=== PATIENT | female | born 1980 | race Caucasian/White ===

== ENCOUNTER 2017-02-27 13:03 | Emergency (ER) | payer OTHER ==
--- NOTE | 2017-02-27 13:41 | ERPHSYRPT ---
- History of Present Illness Time Seen by Provider: 02/27/17 13:39 Source: patient Exam Limitations: no limitations Physician History: tender sts of dorsal left foot today, tripped on the steps, no bleeding, no other injury, mild to mod ache pain, but pt refused pain med Allergies/Adverse Reactions: No Known Drug Allergies Allergy (Verified 02/27/17 13:36) Home Medications: Loratadine 10 mg [Claritin 10 mg] 10 mg PO DAILY 04/22/15 [History] Paroxetine HCl [Paxil Cr] 25 mg PO DAILY 04/22/15 [History] Propranolol HCl [Inderal LA] 80 mg PO DAILY 02/27/17 [History] Hx Tetanus, Diphtheria Vaccination/Date Given: No Hx Influenza Vaccination/Date Given: Yes Hx Pneumococcal Vaccination/Date Given: No - Review of Systems Neurological: No Dizziness - Past Medical History Pertinent Past Medical History: Yes Neurological History: No Pertinent History Cardiac History: No Pertinent History Respiratory History: No Pertinent History Endocrine Medical History: No Pertinent History Musculoskeletal History: Other Female Reproductive Disorders: Menstrual Problems Other Medical History: CHONDROMALACIA BILATERAL KNEES - Past Surgical History Past Surgical History: Yes Female Surgical History: Section, Tubal Ligation, Other Other Surgical History: ablasion - Social History Smoking Status: Never smoker Exposure to second hand smoke: No Drug Use: none Patient Lives Alone: No - Nursing Vital Signs Nursing Vital Signs: Initial Vital Signs Temperature 97.7 F 02/27/17 13:33 Pulse Rate 77 02/27/17 13:33 Respiratory Rate 18 02/27/17 13:33 Blood Pressure 128/66 02/27/17 13:33 O2 Sat by Pulse Oximetry 95 02/27/17 13:33 Pain Scale Pain Intensity 7 - Physical Exam General Appearance: no apparent distress Neuro/Tendon Exam: normal sensation Mental Status Exam: alert, oriented x 3, cooperative Skin Exam: warm, dry, other (tender sts left dorsal mid foot, rom limited by pain, sen and pulses intact, nontender knee) - Course Nursing assessment & vital signs reviewed: Yes - Radiology Exams Foot X-ray Interpretation: Interpreted by me, No Fracture Ankle X-ray Interpretation: Interpreted by me, No Fracture Ordered Tests: Active Orders 24 hr Category Date Time Status Crutches STAT Care 02/27/17 14:21 Ordered Splint STAT Care 02/27/17 14:20 Ordered ANKLE (3 VIEWS) Stat Exams 02/27/17 Taken FOOT (MINIMUM 3 VIEWS) Stat Exams 02/27/17 Taken Medication Summary Discontinued Medications Generic Name Dose Route Start Last Admin Trade Name Teddy PRN Reason Stop Dose Admin Ibuprofen 400 mg 02/27/17 13:56 02/27/17 13:59 Motrin 400 Mg PO 02/27/17 13:57 400 mg STAT ONE Administration Ibuprofen Confirm 02/27/17 13:58 Motrin 400 Mg Administered 02/27/17 13:59 Dose 400 mg .ROUTE .STK-MED ONE - Progress Progress: improved Progress Note: 02/27/17 14:22 motrin ice and elevation crutches Discussed with .: Merlin Will see patient in: office Counseled pt/family regarding: diagnosis, need for follow-up, rad results - Departure Time of Disposition: 14:23 Departure Disposition: Home Clinical Impression: Contusion Qualifiers: Encounter type: initial encounter Contusion area: foot Laterality: left Qualified Code(s): S90.32XA - Contusion of left foot, initial encounter Condition: Stable Critical Care Time: No Referrals: RYAN MCCORMICK [Primary Care Provider] - Instructions: Foot Pain Additional Instructions: see [facility] [phone] ice and elevation and motrin use crutches, nonweight bearing return if worse
[2017-02-27] MEDS ORDERED: MOTRIN 400 MG PO ONE (13:56)
[2017-02-27] MEDS ORDERED: MOTRIN 400 MG ONE (13:58)
[2017-02-27 15:04] VITALS: BP 132/70; PULSE 68; O2SAT 97
--- NOTE | 2017-02-27 19:46 | XRAY ---
Indication: Pain following twisting injury. Comparison: None 3 nonweightbearing views of the left foot demonstrates tiny heel spurs and prominent navicular accessory ossicle. No other bony, articular, or soft tissue abnormalities.
--- NOTE | 2017-02-27 19:46 | XRAY ---
Indication: Pain following twisting injury. Comparison: None 3 views of the left ankle demonstrates tiny heel spurs. No other bony, articular, or soft tissue abnormalities.
== END 2017-02-27 15:04 | disposition home or self-care (01) ==
LOC: ED 13:03
PROC: 2W3RX1Z Immobilization of Left Lower Leg using Splint (ICD-10-PCS; principal; 2017-02-27)
DX: S90.32XA Contusion of left foot, initial encounter (principal); W10.9XXA Fall (on) (from) unspecified stairs and steps, initial encounter
CPT/HCPCS: 29515; 73610; 73630; 99283; A9270-GY

== ENCOUNTER 2018-03-20 17:25 | Emergency (ER) | payer OTHER ==
--- NOTE | 2018-03-20 17:48 | ERPHSYRPT ---
- History of Present Illness Time Seen by Provider: 03/20/18 17:47 Historian: patient, family Exam Limitations: no limitations Physician History: 38 y/o white female presents with abd cramping pain, vomiting and diarrhea onset approx 1 to 2 hours after a brunch meal today. pain in epigastric area without radiation. denies cp and denies soa. had a similar episode in 2010 and dx with gastritis. pt still with gallbladder in place. no other individuals with same sx after eating same food. Timing/Duration: today Activities at Onset: other (just ate) Quality: cramping Abdominal Pain Onset Location: epigastric, periumbilical Pain Radiation: no radiation Severity of Pain-Max: mild Severity of Pain-Current: mild Modifying Factors: Improves With: vomiting Associated Symptoms: diarrhea, loss of appetite, nausea, vomiting Previous symptoms: same symptoms as today (in 2009) Allergies/Adverse Reactions: No Known Drug Allergies Allergy (Verified 02/27/17 13:36) Home Medications: Paroxetine HCl [Paxil Cr] 25 mg PO DAILY 04/22/15 [History] Amphet Asp/Amphet/D-Amphet [Adderall 30 mg Tablet] 30 mg PO DAILY 03/17/18 [ History] Propranolol HCl [Propranolol HCl ER] 120 mg PO DAILY 03/17/18 [History] Hx Tetanus, Diphtheria Vaccination/Date Given: No Hx Influenza Vaccination/Date Given: Yes Hx Pneumococcal Vaccination/Date Given: No - Review of Systems Constitutional: No Symptoms Eyes: No Symptoms Ears, Nose, & Throat: No Symptoms Respiratory: No Symptoms Cardiac: No Symptoms Abdominal/Gastrointestinal: Abdominal Pain, Nausea, Vomiting, Diarrhea Genitourinary Symptoms: No Symptoms, No Dysuria, No Frequency, No Hematuria Musculoskeletal: No Symptoms Skin: No Symptoms Neurological: No Symptoms Psychological: No Symptoms Endocrine: No Symptoms Hematologic/Lymphatic: No Symptoms Immunological/Allergic: No Symptoms All Other Systems: Reviewed and Negative - Past Medical History Pertinent Past Medical History: Yes Neurological History: No Pertinent History Cardiac History: No Pertinent History Respiratory History: No Pertinent History Endocrine Medical History: No Pertinent History Musculoskeletal History: Other GI Medical History: No Pertinent History History: No Pertinent History Psycho-Social History: No Pertinent History Female Reproductive Disorders: Menstrual Problems Other Medical History: CHONDROMALACIA BILATERAL KNEES - Past Surgical History Past Surgical History: Yes Neuro Surgical History: No Pertinent History Cardiac: No Pertinent History Respiratory: No Pertinent History Gastrointestinal: No Pertinent History Genitourinary: No Pertinent History Musculoskeletal: No Pertinent History Female Surgical History: Section, Tubal Ligation, Other Other Surgical History: ablasion - Social History Smoking Status: Never smoker Exposure to second hand smoke: No Drug Use: none Patient Lives Alone: No - Nursing Vital Signs Nursing Vital Signs: Initial Vital Signs Temperature 98.5 F 03/20/18 17:57 Pulse Rate 57 L 03/20/18 17:57 Respiratory Rate 16 03/20/18 17:57 Blood Pressure 123/80 03/20/18 17:57 O2 Sat by Pulse Oximetry 96 03/20/18 17:57 Pain Scale Pain Intensity 6 - Physical Exam General Appearance: mild distress, alert, anxiety Eye Exam: PERRL/EOMI, eyes nml inspection Ears, Nose, Throat Exam: normal ENT inspection, moist mucous membranes Neck Exam: normal inspection, non-tender, supple, full range of motion Respiratory Exam: normal breath sounds, lungs clear, airway intact, No chest tenderness, No respiratory distress, No accessory muscle use, No rhonchi, No wheezing, No stridor Cardiovascular Exam: regular rate/rhythm, normal heart sounds, normal peripheral pulses Gastrointestinal/Abdomen Exam: soft, normal bowel sounds, tenderness (mild epigastric and periumbilical cramping), No guarding, No rebound Back Exam: normal inspection, normal range of motion, No CVA tenderness, No vertebral tenderness Extremity Exam: normal inspection, normal range of motion, pelvis stable Neurologic Exam: alert, oriented x 3, cooperative, traveling passenger agent II-XII nml as tested Skin Exam: normal color, warm, dry Lymphatic Exam: No adenopathy SpO2 Interpretation: normal Oxygen Delivery: Room Air - Course Nursing assessment & vital signs reviewed: Yes Ordered Tests: Active Orders 24 hr Category Date Time Status IV Insertion STAT Care 03/20/18 18:07 Active NPO (ED) STAT Care 03/20/18 18:07 Active ABDOMEN AND PELVIS W/0 CONTRAS [CT] Stat Exams 03/20/18 19:12 Taken AMYLASE Stat Lab 03/20/18 18:10 Completed CBC W DIFF Stat Lab 03/20/18 18:10 Completed CMP Stat Lab 03/20/18 18:10 Completed HCG,QUALITATIVE URINE Stat Lab 03/20/18 17:40 Completed LIPASE Stat Lab 03/20/18 18:10 Completed Lactic Acid Stat Lab 03/20/18 18:15 Completed UA W/RFX UR CULTURE Stat Lab 03/20/18 17:40 Completed Medication Summary Discontinued Medications Generic Name Dose Route Start Last Admin Trade Name Dennyq PRN Reason Stop Dose Admin Famotidine 20 mg 03/20/18 18:07 03/20/18 18:29 Pepcid 20 Mg Vial IV 03/20/18 18:08 20 mg STAT ONE Administration Famotidine Confirm 03/20/18 18:19 Pepcid 20 Mg Vial Administered 03/20/18 18:20 Dose 20 mg IV .STK-MED ONE Hydromorphone HCl 1 mg 03/20/18 19:12 03/20/18 19:30 Hydromorphone 1 Mg/Ml Ampule IV 03/20/18 19:13 1 mg STAT ONE Administration Hydromorphone HCl Confirm 03/20/18 19:27 Hydromorphone 1 Mg/Ml Ampule Administered 03/20/18 19:28 Dose 1 mg .ROUTE .STK-MED ONE Sodium Chloride 1,000 mls @ 999 mls/hr 03/20/18 18:07 03/20/18 18:30 Sodium Chloride 0.9% 1000 Ml IV 03/20/18 19:07 999 mls/hr .Q1H1M STA Administration Sodium Chloride Confirm 03/20/18 18:19 Sodium Chloride 0.9% 1000 Ml Administered 03/20/18 18:20 Dose 1,000 mls @ ud .ROUTE .STK-MED ONE Sodium Chloride 1,000 mls @ 999 mls/hr 03/20/18 19:12 03/20/18 19:29 Sodium Chloride 0.9% 1000 Ml IV 03/20/18 20:12 999 mls/hr .Q1H1M STA Administration Sodium Chloride Confirm 03/20/18 19:27 Sodium Chloride 0.9% 1000 Ml Administered 03/20/18 19:28 Dose 1,000 mls @ ud .ROUTE .STK-MED ONE Ondansetron HCl 4 mg 03/20/18 18:07 03/20/18 18:29 Zofran 4 Mg/2 Ml Vial IV 03/20/18 18:08 4 mg STAT ONE Administration Ondansetron HCl Confirm 03/20/18 18:19 Zofran 4 Mg/2 Ml Vial Administered 03/20/18 18:20 Dose 4 mg .ROUTE .STK-MED ONE Lab/Rad Data: Laboratory Result Diagrams 03/20/18 18:10 03/20/18 18:10 Laboratory Results 03/20/18 03/20/18 03/20/18 Range/Units 18:45 18:15 18:10 WBC (4.0-10.5) K/mm3 RBC (4.1-5.4) M/mm3 Hgb (12.0-16.0) gm/dl Hct (35-47) % MCV (78-100) fl MCH (26-32) pg MCHC (32-36) g/dl RDW (11.5-14.0) % Plt Count (150-450) K/mm3 MPV (6-9.5) fl Gran % (36.0-66.0) % Eos # (Auto) (0-0.5) Absolute Lymphs (auto) (1.0-4.6) Absolute Monos (auto) (0.0-1.3) Lymphocytes % (24.0-44.0) % Monocytes % (0.0-12.0) % Eosinophils % (0.00-5.0) % Basophils % (0.0-0.4) % Absolute Granulocytes (1.4-6.9) Basophils # (0-0.4) Sodium 144 (137-145) mmol/L Potassium 3.8 (3.5-5.1) mmol/L Chloride 104 (98-107) mmol/L Carbon Dioxide 31 H (22-30) mmol/L Anion Gap 12.8 (5-15) MEQ/L BUN 18 H (7-17) mg/dL Creatinine 0.94 (0.52-1.04) mg/dL Estimated GFR > 60.0 ML/MIN Glucose 97 (74-106) mg/dL Lactic Acid 0.7 (0.4-2.0) Calcium 9.7 (8.4-10.2) mg/dL Total Bilirubin 0.60 (0.2-1.3) mg/dL AST 30 (14-36) U/L ALT 22 (0-35) U/L Alkaline Phosphatase 91 (38-126) U/L Serum Total Protein 7.9 (6.3-8.2) g/dL Albumin 4.7 (3.5-5.0) g/dL Amylase 137 H (30-110) U/L Lipase 240 (23-300) U/L Urine Color (YELLOW) Urine Appearance (CLEAR) Urine pH (5-6) Ur Specific [place] (1.005-1.025) Urine Protein (Negative) Urine Ketones (NEGATIVE) Urine Blood (0-5) Yandel/ul Urine Nitrite (NEGATIVE) Urine Bilirubin (NEGATIVE) Urine Urobilinogen (0-1) mg/dL Ur Leukocyte Esterase (NEGATIVE) Urine WBC (Auto) (0-5) /HPF Urine RBC (Auto) (0-2) /HPF U Epithel Cells (Auto) (FEW) /HPF Urine Bacteria (Auto) (NEGATIVE) /HPF Urine Mucus (Auto) (NEGATIVE) /HPF Urine Culture Reflexed (NO) Urine Glucose (NEGATIVE) mg/dL Urine HCG, Qual (Negative) Influenza Type A Ag NEGATIVE (NEGATIVE) Influenza Type B Ag NEGATIVE (NEGATIVE) RSV (PCR) NEGATIVE (Negative) 03/20/18 03/20/18 03/20/18 Range/Units 18:10 17:40 17:40 WBC 8.0 (4.0-10.5) K/mm3 RBC 4.52 (4.1-5.4) M/mm3 Hgb 14.3 (12.0-16.0) gm/dl Hct 41.6 (35-47) % MCV 92.0 (78-100) fl MCH 31.6 (26-32) pg MCHC 34.4 (32-36) g/dl RDW 13.4 (11.5-14.0) % Plt Count 228 (150-450) K/mm3 MPV 10.0 H (6-9.5) fl Gran % 69.5 H (36.0-66.0) % Eos # (Auto) 0.14 (0-0.5) Absolute Lymphs (auto) 1.58 (1.0-4.6) Absolute Monos (auto) 0.68 (0.0-1.3) Lymphocytes % 19.8 L (24.0-44.0) % Monocytes % 8.5 (0.0-12.0) % Eosinophils % 1.8 (0.00-5.0) % Basophils % 0.4 (0.0-0.4) % Absolute Granulocytes 5.57 (1.4-6.9) Basophils # 0.03 (0-0.4) Sodium (137-145) mmol/L Potassium (3.5-5.1) mmol/L Chloride (98-107) mmol/L Carbon Dioxide (22-30) mmol/L Anion Gap (5-15) MEQ/L BUN (7-17) mg/dL Creatinine (0.52-1.04) mg/dL Estimated GFR ML/MIN Glucose (74-106) mg/dL Lactic Acid (0.4-2.0) Calcium (8.4-10.2) mg/dL Total Bilirubin (0.2-1.3) mg/dL AST (14-36) U/L ALT (0-35) U/L Alkaline Phosphatase (38-126) U/L Serum Total Protein (6.3-8.2) g/dL Albumin (3.5-5.0) g/dL Amylase (30-110) U/L Lipase (23-300) U/L Urine Color YELLOW (YELLOW) Urine Appearance CLEAR (CLEAR) Urine pH 5.0 (5-6) Ur Specific [place] 1.024 (1.005-1.025) Urine Protein NEGATIVE (Negative) Urine Ketones TRACE (NEGATIVE) Urine Blood NEGATIVE (0-5) Yandel/ul Urine Nitrite NEGATIVE (NEGATIVE) Urine Bilirubin NEGATIVE (NEGATIVE) Urine Urobilinogen 2 (0-1) mg/dL Ur Leukocyte Esterase NEGATIVE (NEGATIVE) Urine WBC (Auto) NONE (0-5) /HPF Urine RBC (Auto) NONE (0-2) /HPF U Epithel Cells (Auto) NONE (FEW) /HPF Urine Bacteria (Auto) NONE SEEN (NEGATIVE) /HPF Urine Mucus (Auto) SLIGHT (NEGATIVE) /HPF Urine Culture Reflexed NO (NO) Urine Glucose NEGATIVE (NEGATIVE) mg/dL Urine HCG, Qual NEGATIVE (Negative) Influenza Type A Ag (NEGATIVE) Influenza Type B Ag (NEGATIVE) RSV (PCR) (Negative) - Progress Progress: improved, re-examined Progress Note: 03/20/18 20:37 pt feeling much better. wants to try outpt tx. no nausea. pain nearly gone. Counseled pt/family regarding: lab results, diagnosis, need for follow-up, rad results - Departure Time of Disposition: 20:37 Departure Disposition: Home Clinical Impression: Colitis Condition: Stable Critical Care Time: No Referrals: RYAN MCCORMICK [Primary Care Provider] - Additional Instructions: drink plenty of clear liquids. follow up with primary doctor for further management. return to ED if symptoms recur. Prescriptions: Hydrocodone/APAP 5/325 [[place] 5/325 mg] 1 each PO Q8H PRN PRN #10 tablet MDD 3 PRN Reason: Pain Promethazine HCl 25 mg [Phenergan 25 mg] 25 mg PO Q8H PRN PRN #10 tablet PRN Reason: Nausea/Vomiting Ciprofloxacin [Cipro 500 MG] 500 mg PO BID #14 tablet Metronidazole 500 mg [Flagyl 500 MG] 500 mg PO TID #21 tablet
[2018-03-20] MEDS ORDERED: Pepcid 20 MG VIAL IV ONE ×2 (18:07→18:19)
[2018-03-20] MEDS ORDERED: Sodium Chloride 0.9% 1000 ML 1,000 ML IV STA ×2 (18:07→19:12)
[2018-03-20] MEDS ORDERED: Zofran 4 MG/2 ML VIAL IV ONE (18:07)
[2018-03-20] MEDS ORDERED: Sodium Chloride 0.9% 1000 ML 1,000 ML ONE ×2 (18:19→19:27)
[2018-03-20] MEDS ORDERED: Zofran 4 MG/2 ML VIAL ONE (18:19)
[2018-03-20 18:23] LABS: BASOPHIL % 0.4 % (0.0-0.4); Basophil (Absolute #) 0.03 (0-0.4); Eosinophil % 1.8 % (0.00-5.0); Eosinophil (Absolute #) 0.14 (0-0.5); Granulocyte Absolute (ANC) 5.57 (1.4-6.9); Granulocytes % 69.5 % (36.0-66.0); Hematocrit 41.6 % (35-47); Hemoglobin 14.3 gm/dl (12.0-16.0); Lymphocyte (Absolute #) 1.58 (1.0-4.6); Lymphocytes % 19.8 % (24.0-44.0); Mean Corpuscular Hemoglobin 31.6 pg (26-32); Mean Corpuscular Hgb Concent. 34.4 g/dl (32-36); Monocyte (Absolute #) 0.68 (0.0-1.3); Monocytes % 8.5 % (0.0-12.0); Platelet Count 228 K/mm3 (150-450); Red Blood Count 4.52 M/mm3 (4.1-5.4); Red Cell Distribution Width 13.4 % (11.5-14.0)
[2018-03-20 18:29] LABS: Appearance CLEAR (CLEAR); Bilirubin NEGATIVE (NEGATIVE); Blood NEGATIVE Ery/ul (0-5); Glucose NEGATIVE (NEGATIVE); Ketones TRACE (NEGATIVE); Leukocyte Esterase NEGATIVE (NEGATIVE); Nitrite NEGATIVE (NEGATIVE); Protein,Urine Dip NEGATIVE (Negative); Specific Gravity 1.024 (1.005-1.025); Urobilinogen 2 mg/dL (0-1)
[2018-03-20 18:41] LABS: ALBUMIN 4.7 g/dL (3.5-5.0); ALKALINE PHOSPHATASE 91 U/L (38-126); AMYLASE 137 U/L (30-110); ANION GAP 12.8 MEQ/L (5-15); BLOOD UREA NITROGEN 18 mg/dL (7-17); CHLORIDE 104 mmol/L (98-107); Calcium 9.7 mg/dL (8.4-10.2); Carbon Dioxide 31 mmol/L (22-30); Creatinine 1 0.94 mg/dL (0.52-1.04); Glucose 97 mg/dL (74-106); LIPASE 240 U/L (23-300); Potassium 3.8 mmol/L (3.5-5.1); SGOT/AST 30 U/L (14-36); SGPT/ALT 22 U/L (0-35); SODIUM 144 mmol/L (137-145); Total Protein 7.9 g/dL (6.3-8.2)
[2018-03-20] MEDS ORDERED: Hydromorphone 1 mg/ml Ampule IV ONE ×2 (19:12→20:46)
[2018-03-20] MEDS ORDERED: Hydromorphone 1 mg/ml Ampule ONE ×2 (19:27→20:53)
[2018-03-20 19:32] LABS: INFLUENZA A NEGATIVE (NEGATIVE); INFLUENZA B NEGATIVE (NEGATIVE); RESPIRATORY SYNCTIAL VIRUS NEGATIVE (Negative)
[2018-03-20 20:40] VITALS: PULSE 76
[2018-03-20] MEDS ORDERED: Flagyl 500 MG PO ONE (20:45)
[2018-03-20] MEDS ORDERED: Cipro 500 MG PO ONE (20:45)
[2018-03-20] MEDS ORDERED: Flagyl 500 MG ONE (20:53)
[2018-03-20] MEDS ORDERED: Cipro 500 MG ONE (20:53)
[2018-03-20 21:07] VITALS: BP 120/72; O2SAT 97
--- NOTE | 2018-03-20 22:29 | XRAY ---
Indication: Epigastric pain. Vomiting and diarrhea. Multiple contiguous axial images obtained through the abdomen and pelvis without contrast as ordered. Comparison: December 04, 2010. Lung bases demonstrates minimal bibasilar dependent atelectasis. No infiltrate or effusion. Heart is not enlarged. Noncontrasted stomach and bowel loops appear nonobstructed. Normal appendix. Mid to distal transverse colon and descending colon demonstrates minimal pericolonic stranding favoring colitis. No free fluid/air. Again splenomegaly today measuring 13.5 cm in greatest axial dimension. Remaining liver, gallbladder, pancreas, spleen, adrenal glands, kidneys, ureters, bladder, uterus, and aorta appear unremarkable for noncontrast exam. Osseous structures intact. No ventral or inguinal hernias. Impression: 1. Distal transverse and descending colitis as detailed. No complications. 2. Incidental splenomegaly. 3. Remaining CT abdomen/pelvis without contrast exam is negative. Comment: Preliminary interpretation was made by C. No critical discrepancy. CTDI 21.35
== END 2018-03-20 21:25 | disposition home or self-care (01) ==
LOC: ED 17:25
DX: K52.9 Noninfective gastroenteritis and colitis, unspecified (principal); R10.13 Epigastric pain; R10.33 Periumbilical pain; Z79.899 Other long term (current) drug therapy
CPT/HCPCS: 36000; 36415; 74176; 80053; 81001; 82150; 83605; 83690; 84703; 85025; 87631; 96360; 96361; 96374; 96375; 96376; 99284; J1170; J2405; A9270-GY

== ENCOUNTER 2018-03-27 05:54 | Day surgery (SDC) | payer OTHER ==
--- NOTE | 2018-03-24 16:28 | HP ---
PROCEDURE DATE: 03/27/18 HISTORY OF PRESENT ILLNESS: Patient is a 38 with some bright red blood per rectum. Has been going on 6 months. Increased blood, some clots at this time, constipation. PAST MEDICAL HISTORY: Some migraine injections once a month. CURRENT MEDICATIONS: Paxil, Adderall, Inderal, Aimovig IM monthly. ALLERGIES: NO KNOWN DRUG ALLERGIES. PAST SURGICAL HISTORY: Had C-Sections X 3, has had a tubal in the past, had carpal tunnel done in the past. FAMILY HISTORY: Some stomach cancer in the grandfather. No family history of inflammatory bowel disease. SOCIAL HISTORY: Former smoker, reports occasional alcohol use. REVIEW OF SYSTEMS: No chest pain or palpitations. 12 systems reviewed, negative or noncontributory other than noted above and per preadmission questionnaire. Pertinent for history of migraines. PHYSICAL EXAMINATION: GENERAL: No acute distress. HEENT: Sclerae nonicteric. NECK: No JVD. CHEST: Equal excursion. Nonlabored breathing. CVS: Regular rate and rhythm. ABDOMEN: Soft. EXTREMITIES: No significant edema. NEURO: Alert, moving extremities symmetrically. No gross motor deficits noted. RECTAL: No evidence of any large exophytic external hemorrhoids at this point. IMPRESSION: 1. RECTAL BLEEDING. [place] patient would benefit from colonoscopy to evaluate for colitis, inflammatory bowel disease vs polyp or neoplasia or other etiology additionally. Question of whether she has some internal hemorrhoid issues causing some of the bleeding as well as she is a candidate of possible internal hemorrhoid banding pending operative findings. Risks and benefits explained in detail, but not limited to, bleeding; infection; risk of bowel injury or perforation possibly requiring open procedure; risk of missed or nondiagnosis or incomplete exam possibly requiring barium enema or other studies or procedures; general risk of anesthesia or sedation; risk of bowel prep; postoperative risk of nausea or cramping, but not limited to. Regarding possible internal hemorrhoid banding, if it looks like her internal hemorrhoids are causing the issue at the time, will consider internal hemorrhoid banding with risk of bleeding or infection; risk of deeper infection possibly requiring major operative procedure; general risks of anesthesia. She also understands there is the possibility that should the internal hemorrhoids warrant banding, there is a possibility hemorrhoids could progress over time and she may need and she may need another procedure either banding, excisional therapy, or other treatments down the road. She understands as well as general risks of perioperative bleeding, possibility of inability to diagnose etiology of her symptoms; small risk of aches, pains, or cramping. She understands and agrees to proceed with colonoscopy with possible internal hemorrhoid banding as an outpatient.
[2018-03-27] MEDS ORDERED: DIPRIVAN 200 MG/20 ML IV ONE (05:55)
[2018-03-27] MEDS ORDERED: Lactated Ringers 1,000 ML IV ONE (07:09)
[2018-03-27] MEDS ORDERED: Lactated Ringers 1,000 ML IV SCH (07:30)
[2018-03-27] MEDS ORDERED: MEFOXIN 2 GM PREMIX** 2 GM/50 ML ML IV ONE (07:38)
[2018-03-27] MEDS ORDERED: ANUSOL-HC 2.5% CREAM 30 GM ONE (09:20)
[2018-03-27 09:40] VITALS: O2SAT 99
[2018-03-27 09:52] VITALS: PULSE 80
[2018-03-27 10:00] VITALS: BP 122/72
--- NOTE | 2018-03-27 10:01 | OP ---
SURGERY DATE/TIME: 03/27/2018 0842 PREOPERATIVE DIAGNOSIS: History of rectal bleeding and some abdominal cramping. POSTOPERATIVE DIAGNOSES: 1) Colitis. 2) Internal and external hemorrhoids. 3) Fair bowel prep slightly limiting exam. PROCEDURES: 1) Colonoscopy to terminal ileum. 2) Retrograde ileosocopy. 3) Random ileal biopsies. 4) Random colon biopsy to evaluate for colitis. 5) Cold biopsy small inflamed, raised area descending colon. 6) Hot biopsy removal of two small raised lesions versus early polyps versus hyperplastic lesions rectum. 7) Internal hemorrhoidal banding x2 columns. SURGEON: Dr. Zuhair Pedraza. ANESTHESIA: MAC. ESTIMATED BLOOD LOSS: Minimal. INDICATIONS: As noted above. Risks and benefits explained in detail but not limited to and consent obtained. DESCRIPTION OF PROCEDURE AND FINDINGS: The patient is taken to the operating room. MAC anesthesia introduced. After official time out and no disagreement with planned procedure, digital rectal exam revealed some internal and external hemorrhoids. There were no palpable masses. Video colonoscope inserted and passed up through the slightly tortuous sigmoid, descending, transverse and ascending colon. With external pressure the scope was able to be passed to the cecum. Appendiceal orifice and valve well visualized. Scope was able to be passed up the terminal ileum. Retrograde ileoscopy performed. Ileum grossly unremarkable. She had some inflammation in the left colon. Random cold biopsies were taken for further evaluation. Good hemostasis noted. Scope pulled back into the colon. Overall prep was fair. There were some areas of liquidy stool this is suctioned as well as possible but did slightly limit the exam. Overall a fair prep. The scope is slowly and carefully withdrawn. There were no signs of any large polyps, masses or obstructing lesions in the left colon, descending colon, small raised areas inflamed whether just simple colitis or not biopsied with cold biopsy forceps. Otherwise random cold biopsies were biopsied in the left colon where areas of inflammation were noted, signs of colitis. Whether this was early inflammatory bowel disease, infectious or other etiology is unclear. Otherwise cold biopsy taken for further evaluation. The scope carefully withdrawn back to the rectum. She had some grade II to III internal and external hemorrhoids. Otherwise a couple small early polyps versus hyperplastic lesion removed in the rectum with hot biopsy forceps and brief bursts of cautery. Good hemostasis noted. The scope is withdrawn. Lubricated retractor carefully inserted. Left lateral and right anterior hemorrhoid complexes seem to be prominent enough could have accounted for some bleeding. It was felt she warranted a trial of banding therefore suction leases and land supervisor left lateral in the right anterior fired with a good tuft of tissue noted. Good hemostasis noted. The right posterior did not seem to be prominent enough to warrant banding at this point. Otherwise scope was retracted and withdrawn. The patient tolerated the procedure well. There were no immediate complications. Findings discussed with the family out in the waiting area. Sitz baths PRN, high fiber diet to titrate soft bulky bowel movements otherwise will order IBD sgi test and see her back in the office next week.
== END 2018-03-27 10:05 | disposition home or self-care (01) ==
LOC: SDC 05:54
PROVIDERS: ATTEND Surgery
DX: K52.9 Noninfective gastroenteritis and colitis, unspecified (principal); K64.4 Residual hemorrhoidal skin tags; K64.8 Other hemorrhoids
CPT/HCPCS: 36415; 81479; 82397; 83520; 86140; 88305; 88346; J0694; J2704; A9270-GY

== ENCOUNTER 2020-10-27 21:09 | Emergency (ER) | payer OTHER | END 2020-10-27 21:15 | disposition left against medical advice (07) | LOC: ED 21:09 | DX: Z53.9 Procedure and treatment not carried out, unspecified reason (principal) ==